=== PATIENT | male | born 1970 | race Two or more races ===

== ENCOUNTER → 2021-05-28 | Outpatient (CLI) | payer SELFPAY | LOC: ECHO 10:30 | DX: R07.9 Chest pain, unspecified (principal) | CPT/HCPCS: ECHO; 93306 ==

== ENCOUNTER → 2022-05-02 | Outpatient (CLI) | payer SELFPAY ==
[2022-05-02 09:08] LABS: BUN/CREATININE RATIO 14 (0-10)
== END ==
LOC: LAB 08:02
PROVIDERS: Family Medicine
DX: I10 Essential (primary) hypertension (principal); E53.8 Deficiency of other specified B group vitamins
CPT/HCPCS: 36415; 80048; 82607